=== PATIENT | female | born 1995 | race Two or more races ===

== ENCOUNTER 2017-09-30 17:17 | Emergency (ER) | payer OTHER ==
[~2017-09-30] VITALS: Ht 152.4 cm; Wt 73.8 kg
[2017-09-30 17:24] VITALS: BP 133/81
== END 2017-09-30 19:03 | disposition home or self-care (01) ==
LOC: ED 19:00
DX: S61.052A Open bite of left thumb without damage to nail, initial encounter (principal); W54.0XXA Bitten by dog, initial encounter; Y93.89 Activity, other specified; Y92.89 Other specified places as the place of occurrence of the external cause; Y99.8 Other external cause status
CPT/HCPCS: 99281

== ENCOUNTER 2018-07-08 01:57 | Emergency (ER) | payer OTHER ==
[~2018-07-08] VITALS: Ht 154.9 cm; Wt 75.0 kg
[2018-07-08 01:58] VITALS: BP 111/74
[2018-07-08] MEDS ORDERED: ONDANSETRON ODT 4 MG ONE (02:16)
--- NOTE | 2018-07-08 02:19 | NUR ---
PT MEDICATED PER EMAR. 5 RIGHTS ADDRESSED. PT TO RESTROOM VIA WHEELCHAIR TO OBTAIN URINE SAMPLE. FRIEND ACCOMPANYING PT
--- NOTE | 2018-07-08 02:29 | NUR ---
UA SENT TO LAB
[2018-07-08] MEDS ORDERED: ONDANSETRON ODT 4 MG PO ONE (02:30)
[2018-07-08 02:50] LABS: HCG UR SG 1.013 (1.003-1.030)
[2018-07-08 02:51] LABS: CULTURE INDICATED? YES; MICROSCOPIC INDICATED
--- NOTE | 2018-07-08 03:06 | NUR ---
PT SLEEPING, NO MORE VOMITING AT THIS TIME. PARENTS AT BEDSIDE. AWAITING [facility]A TOXICOLOGY RESULTS AT THIS TIME.
[2018-07-08 03:08] LABS: AMPHETAMINE SCREEN, URINE Negative (Negative); BENZODIAZEPINE SCREEN, URINE Negative (Negative); CANNABINOID SCREEN, URINE Negative (Negative); COCAINE SCREEN, URINE Negative (Negative); METHADONE SCREEN, URINE Negative (Negative); OPIATE SCREEN, URINE Negative (Negative)
[2018-07-08 03:11] LABS: BARBITURATE SCREEN, URINE Negative (Negative)
--- NOTE | 2018-07-08 04:09 | NUR ---
Patient/Caregiver given discharge instructions and they have confirmed that they understand the instructions. Patient ambulatory with steady gait.
== END 2018-07-08 04:10 | disposition home or self-care (01) ==
LOC: ED 02:37
DX: F10.120 Alcohol abuse with intoxication, uncomplicated (principal)
CPT/HCPCS: 80307; 81001; 81025; 87086; 99283; Q0162